=== PATIENT | female | born 1960 | race Caucasian/White ===

== ENCOUNTER 2017-01-05 02:06 | Inpatient (IN) | payer MEDICAID, OTHER ==
[~2017-01-05] VITALS: Ht 160 cm; Wt 110.1 kg
[2017-01-05] VITALS (7 sets, daily range): BP systolic 129–161; BP diastolic 58–95
[2017-01-05] MEDS ORDERED: ASPI81 PO (02:25)
[2017-01-05] MEDS ORDERED: LOSA25TA21 PO (02:25)
[2017-01-05] MEDS ORDERED: METF850T2 PO (02:25)
[2017-01-05 02:33] LABS: GLUCOSE,POINT OF CARE 116 MG/DL (70-110)
[2017-01-05 03:10] LABS: BASOPHILS % (AUTO) 0.8 % (0.0-2.0); EOSINOPHILS % (AUTO) 3.4 % (1.0-6.0); HEMATOCRIT 43.7 % (36-46); HEMOGLOBIN 15.1 g/dL (12.0-16.0); LYMPHOCYTES # (AUTO) 2.8 K/uL (1.0-4.8); LYMPHOCYTES % (AUTO) 26.8 % (22.0-44.0); MEAN CORPUSCULAR HEMOGLOBIN 32.6 pg (26.0-34.0); MEAN CORPUSCULAR HGB CONC 34.5 G/dL (31.0-37.0); MEAN CORPUSCULAR VOLUME 94 fL (80-100); MONOCYTES # (AUTO) 0.7 K/uL (0.1-1.0); MONOCYTES % (AUTO) 6.4 % (2.0-9.0); NEUTROPHILS # (AUTO) 6.6 K/uL (1.8-7.7); NEUTROPHILS % (AUTO) 62.6 % (40.0-70.0); PLATELET COUNT (AUTO) 172 K/uL (150-450); RED BLOOD CELL COUNT(AUTO) 4.63 MIL/uL (4.00-5.20); RED CELL DISTRIBUTION WIDTH 12.6 % (11.5-14.5); WHITE BLOOD COUNT (AUTO) 10.5 K/uL (4.5-11.0)
[2017-01-05 03:16] LABS: INR 1.1 (0.9-1.1); PROTHROMBIN TIME 11.9 SEC (9.4-11.6)
[2017-01-05 03:21] LABS: ANION GAP 7 mmol/L (8-16); CALCIUM, TOTAL 9.2 mg/dL (8.8-10.5); CARBON DIOXIDE 31 mmol/L (22-29); CHLORIDE 103 mmol/L (98-107); CREATININE 1.08 mg/dL (0.60-1.30); GLOMERULAR FILTR. RATE CALC 53 mL/min (>60); POTASSIUM 3.9 mmol/L (3.5-5.1); SODIUM SERUM 141 mmol/L (136-145); UREA NITROGEN, BLOOD 21 mg/dL (7-18)
[2017-01-05 03:38] LABS: B-TYPE NATRIURETIC PEPTIDE 11 pg/mL (0-100)
[2017-01-05 03:47] LABS: ALANINE AMINOTRANSFERASE 96 U/L (12-78); ALBUMIN 3.7 g/dL (3.4-5.0); ASPARTATE AMINOTRANSFERASE 63 U/L (15-37); BILIRUBIN,TOTAL 0.6 mg/dL (0.1-1.0); CREATINE KINASE MB 1.7 ng/mL (0-5); CREATINE KINASE, TOTAL 161 U/L (26-192); TOTAL PROTEIN, SERUM 7.3 g/dL (6.4-8.2)
[2017-01-05] MEDS ORDERED: NITROGLYCERIN 0.4 MG SUBLINGUAL TABLET #25 SL ONE (04:00)
[2017-01-05] MEDS ORDERED: ONDANSETRON HCL 4 MG/2 ML VIAL IVP ONE ×2 (04:00→05:15)
[2017-01-05] MEDS ORDERED: ASPIRIN 325 MG TABLET PO ONE (04:00)
[2017-01-05] MEDS ORDERED: ACETAMINOPHEN 325 MG TABLET PO PRN ×2 (05:15→08:15)
[2017-01-05] MEDS ORDERED: 0.9% SODIUM CHLORIDE 10 ML SYRINGE IVP PRN (05:15)
[2017-01-05] MEDS ORDERED: ONDANSETRON HCL 4 MG/2 ML VIAL IVP PRN (05:15)
[2017-01-05] MEDS ORDERED: MORPHINE SULFATE 2 MG/ML SYRINGE IVP ONE (05:15)
[2017-01-05] MEDS ORDERED: PNEUMOCOCCAL VACCINE POLYVALENT 0.5 ML VIAL [PPSV23] IM ONE (07:30)
[2017-01-05] MEDS ORDERED: MAGNESIUM HYDROXIDE SUSPENSION 30 ML UDCUP PO PRN (08:15)
[2017-01-05] MEDS ORDERED: DEXTROSE 50%-WATER 25 GM/50 ML SYRINGE IVP PRN (08:15)
[2017-01-05] MEDS ORDERED: REGADENOSON 0.4 MG/5 ML PF SYRINGE IVP ONE ×2 (11:18→17:25)
[2017-01-05] MEDS ORDERED: SESTAMIBI TC99M/UD ISOTOPE 1 EA INJ INJ ONE (11:25)
[2017-01-05 13:32] LABS: GLUCOSE,POINT OF CARE 136 MG/DL (70-110)
[2017-01-05] MEDS: PANTOPRAZOLE SODIUM 40 MG DR TABLET PO SCH ×2 (13:54)
[2017-01-05] MEDS: ASPIRIN 81 MG CHEWABLE TABLET PO SCH (13:54)
[2017-01-05] MEDS: DOCUSATE SODIUM 100 MG CAPSULE PO SCH ×2 (13:54→20:12)
[2017-01-05] MEDS: LOSARTAN POTASSIUM 25 MG TABLET PO SCH (13:54)
[2017-01-05] MEDS: AmLODIPine BESYLATE 5 MG TABLET PO SCH (13:54)
[2017-01-05] MEDS: HEPARIN SODIUM,PORCINE 5,000 UNITS/ML VIAL SQ SCH (15:35)
[2017-01-05] MEDS: INSULIN ASPART 100 UNITS/ML SQ PRN (17:56)
[2017-01-06] MEDS: HEPARIN SODIUM,PORCINE 5,000 UNITS/ML VIAL SQ SCH ×3 (00:12→16:49)
[2017-01-06 04:39] VITALS: BP 149/89
[2017-01-06 06:37] LABS: BASOPHILS % (AUTO) 0.7 % (0.0-2.0); EOSINOPHILS % (AUTO) 5.1 % (1.0-6.0); HEMATOCRIT 41.8 % (36-46); HEMOGLOBIN 14.4 g/dL (12.0-16.0); LYMPHOCYTES # (AUTO) 2.1 K/uL (1.0-4.8); LYMPHOCYTES % (AUTO) 32.5 % (22.0-44.0); MEAN CORPUSCULAR HEMOGLOBIN 32.4 pg (26.0-34.0); MEAN CORPUSCULAR HGB CONC 34.4 G/dL (31.0-37.0); MEAN CORPUSCULAR VOLUME 94 fL (80-100); MONOCYTES # (AUTO) 0.4 K/uL (0.1-1.0); MONOCYTES % (AUTO) 6.7 % (2.0-9.0); NEUTROPHILS # (AUTO) 3.5 K/uL (1.8-7.7); PLATELET COUNT (AUTO) 154 K/uL (150-450); RED BLOOD CELL COUNT(AUTO) 4.43 MIL/uL (4.00-5.20); RED CELL DISTRIBUTION WIDTH 12.5 % (11.5-14.5); WHITE BLOOD COUNT (AUTO) 6.4 K/uL (4.5-11.0)
[2017-01-06 07:10] LABS: ALANINE AMINOTRANSFERASE 92 U/L (12-78); ALBUMIN 3.3 g/dL (3.4-5.0); ANION GAP 7 mmol/L (8-16); ASPARTATE AMINOTRANSFERASE 70 U/L (15-37); BILIRUBIN,TOTAL 0.7 mg/dL (0.1-1.0); CALCIUM, TOTAL 8.7 mg/dL (8.8-10.5); CARBON DIOXIDE 30 mmol/L (22-29); CHLORIDE 105 mmol/L (98-107); CREATININE 0.85 mg/dL (0.60-1.30); GLOMERULAR FILTR. RATE CALC > 60 mL/min (>60); POTASSIUM 3.6 mmol/L (3.5-5.1); SODIUM SERUM 142 mmol/L (136-145); TOTAL PROTEIN, SERUM 6.5 g/dL (6.4-8.2); UREA NITROGEN, BLOOD 16 mg/dL (7-18)
[2017-01-06 07:22] LABS: GLUCOSE,POINT OF CARE 143 MG/DL (70-110)
[2017-01-06 07:22] LABS: GLUCOSE,POINT OF CARE 141 MG/DL (70-110)
[2017-01-06 07:22] LABS: GLUCOSE COMMENT 1 Received Meds; GLUCOSE,POINT OF CARE 155 MG/DL (70-110)
[2017-01-06 07:39] VITALS: BP 123/57
[2017-01-06] MEDS ORDERED: SESTAMIBI TC99M/UD ISOTOPE 1 EA INJ INJ ONE (07:50)
[2017-01-06] MEDS: DOCUSATE SODIUM 100 MG CAPSULE PO SCH (09:08)
[2017-01-06] MEDS: ASPIRIN 81 MG CHEWABLE TABLET PO SCH (09:08)
[2017-01-06] MEDS: AmLODIPine BESYLATE 5 MG TABLET PO SCH (09:08)
[2017-01-06] MEDS: PANTOPRAZOLE SODIUM 40 MG DR TABLET PO SCH ×2 (09:08→09:12)
[2017-01-06] MEDS: LOSARTAN POTASSIUM 25 MG TABLET PO SCH (09:08)
[2017-01-06 11:27] VITALS: BP 145/74
[2017-01-06 15:42] VITALS: BP 137/74
[2017-01-06] MEDS: INSULIN ASPART 100 UNITS/ML SQ PRN (17:17)
[2017-01-07 07:09] LABS: HEPATITIS Bs ANTIGEN SCREEN P Negative (Negative); HEPATITIS C AB SCREEN <0.1 s/co ratio (0.0-0.9)
[2017-01-07 12:13] LABS: GLUCOSE,POINT OF CARE 139 MG/DL (70-110)
[2017-01-07 12:13] LABS: GLUCOSE,POINT OF CARE 164 MG/DL (70-110)
== END 2017-01-06 17:55 | disposition home or self-care (01) | DRG 203 ==
LOC: EMS 02:07 → 5N 05:15
PROVIDERS: ADMIT Internal Medicine; ATTEND Internal Medicine
PROC: 3E0234Z Introduction of Serum, Toxoid and Vaccine into Muscle, Percutaneous Approach (ICD-10-PCS; principal; 2017-01-05)
DX: R07.89 Other chest pain (principal); K75.81 Nonalcoholic steatohepatitis (NASH); Z68.41 Body mass index [BMI] 40.0-44.9, adult; I10 Essential (primary) hypertension; R63.4 Abnormal weight loss; R79.89 Other specified abnormal findings of blood chemistry; E78.5 Hyperlipidemia, unspecified; E66.01 Morbid (severe) obesity due to excess calories; E11.9 Type 2 diabetes mellitus without complications; F41.9 Anxiety disorder, unspecified; K21.9 Gastro-esophageal reflux disease without esophagitis; Z79.84 Long term (current) use of oral hypoglycemic drugs; Z82.49 Family history of ischemic heart disease and other diseases of the circulatory system; Z90.49 Acquired absence of other specified parts of digestive tract; Z23 Encounter for immunization
CPT/HCPCS: 78452; 80074; 82962; 83735; 90471; 93005; 93017; 93306; 96374; 96375; 99285; A9500; J1644; J2270; J2405; J2785

== ENCOUNTER 2017-07-11 19:06 | Emergency (ER) | payer OTHER ==
[~2017-07-11] VITALS: Ht 160 cm; Wt 110.2 kg
[~2017-07-11 19:06] MED LIST: ASPI81 PO; LOSA25TA21 PO; METF850T2 PO
[2017-07-11] MEDS ORDERED: [UNRECOGNIZED DRUG - REMARK] PO (19:31)
[2017-07-11] MEDS ORDERED: IBUPROFEN 600 MG TABLET PO ONE (22:30)
[2017-07-11 22:49] VITALS: BP 163/88
[2017-07-12 10:25] LABS: GLUCOSE,POINT OF CARE 144 MG/DL (70-110)
== END 2017-07-11 22:51 | disposition home or self-care (01) ==
LOC: EMS 20:08
DX: J32.9 Chronic sinusitis, unspecified (principal); J02.9 Acute pharyngitis, unspecified; E11.9 Type 2 diabetes mellitus without complications; I10 Essential (primary) hypertension; Z79.82 Long term (current) use of aspirin
CPT/HCPCS: 82962; 87430; 93005; 99285

== ENCOUNTER 2017-12-22 08:05 | Day surgery (SDC) | payer OTHER ==
[~2017-12-22] VITALS: Ht 152.4 cm; Wt 113.6 kg
[~2017-12-22 08:05] MED LIST changes: +AMLO-511 PO; +LOSA1TAB42 PO; -LOSA25TA21 PO; +METF-445 PO; -METF850T2 PO
[2017-12-22] MEDS ORDERED: METOPROLOL TARTRATE 50 MG TABLET PO PRN (08:30)
[2017-12-22] MEDS ORDERED: 0.9% SODIUM CHLORIDE 10 ML SYRINGE IVP PRN (08:30)
[2017-12-22] MEDS ORDERED: METOPROLOL TARTRATE 50 MG TABLET ONE (09:01)
[2017-12-22 10:06] LABS: ANION GAP 8 mmol/L (8-16); CALCIUM, TOTAL 9.1 mg/dL (8.8-10.5); CARBON DIOXIDE 31 mmol/L (22-29); CHLORIDE 104 mmol/L (98-107); CREATININE 0.91 mg/dL (0.60-1.30); GLOMERULAR FILTR. RATE CALC > 60 mL/min (>60); GLUCOSE,RANDOM 140 mg/dL (70-110); POTASSIUM 3.5 mmol/L (3.5-5.1); SODIUM SERUM 143 mmol/L (136-145); UREA NITROGEN, BLOOD 16 mg/dL (7-18)
[2017-12-22] MEDS ORDERED: NITROGLYCERIN 400 MCG/SUBLINGUAL SPRAY 4.9 GM BOTTLE SL ONE (10:15)
[2017-12-22] MEDS ORDERED: METOPROLOL TARTRATE 5 MG/5 ML VIAL ONE (10:15)
[2017-12-22] MEDS ORDERED: IOVERSOL 350 MG/ML 150 ML VIAL ONE (10:18)
[2017-12-22] MEDS ORDERED: SODIUM CHLORIDE 0.9% 100 ML ONE (10:18)
== END 2017-12-22 11:20 | disposition home or self-care (01) ==
LOC: SURGERY 08:05 → EDSTATUS 10:00 → SURGERY 11:20
PROVIDERS: ATTEND Internal Medicine Cardiovascular Disease
DX: I20.8 Other forms of angina pectoris (principal); I70.0 Atherosclerosis of aorta; M47.814 Spondylosis without myelopathy or radiculopathy, thoracic region; F32.9 Major depressive disorder, single episode, unspecified; E11.9 Type 2 diabetes mellitus without complications; K21.9 Gastro-esophageal reflux disease without esophagitis; E78.00 Pure hypercholesterolemia, unspecified; I11.9 Hypertensive heart disease without heart failure; E66.01 Morbid (severe) obesity due to excess calories; M19.90 Unspecified osteoarthritis, unspecified site; Z90.49 Acquired absence of other specified parts of digestive tract; Z82.49 Family history of ischemic heart disease and other diseases of the circulatory system; Z68.42 Body mass index [BMI] 45.0-49.9, adult; Z86.19 Personal history of other infectious and parasitic diseases; Z79.82 Long term (current) use of aspirin; Z79.84 Long term (current) use of oral hypoglycemic drugs; Z79.899 Other long term (current) drug therapy; Z98.890 Other specified postprocedural states
CPT/HCPCS: 36415; 75571; 80048; 93005; J7050; Q9967; J3490

== ENCOUNTER → 2018-04-23 | Emergency (ER) | payer OTHER ==
[~2018-04-23] VITALS: Ht 157.5 cm; Wt 115.9 kg
[~2018-04-23] MED LIST changes: +MORPHINE SULFATE 4 MG/ML SYRINGE IVP ONE; +ONDANSETRON HCL 4 MG/2 ML VIAL IVP ONE
[2018-04-23 01:39] LABS: GLUCOSE,POINT OF CARE 168 MG/DL (70-110)
[2018-04-23 01:48] LABS: BASOPHILS % (AUTO) 0.7 % (0.0-2.0); EOSINOPHILS % (AUTO) 2.2 % (1.0-6.0); HEMATOCRIT 45.8 % (36-46); HEMOGLOBIN 15.7 g/dL (12.0-16.0); LYMPHOCYTES # (AUTO) 2.9 K/uL (1.0-4.8); LYMPHOCYTES % (AUTO) 31.1 % (22.0-44.0); MEAN CORPUSCULAR HEMOGLOBIN 31.5 pg (26.0-34.0); MEAN CORPUSCULAR HGB CONC 34.4 G/dL (31.0-37.0); MEAN CORPUSCULAR VOLUME 92 fL (80-100); MONOCYTES # (AUTO) 0.6 K/uL (0.1-1.0); MONOCYTES % (AUTO) 6.5 % (2.0-9.0); NEUTROPHILS # (AUTO) 5.5 K/uL (1.8-7.7); NEUTROPHILS % (AUTO) 59.5 % (40.0-70.0); PLATELET COUNT (AUTO) 184 K/uL (150-450); RED CELL DISTRIBUTION WIDTH 12.8 % (11.5-14.5)
[2018-04-23 01:56] LABS: ANION GAP 10 mmol/L (8-16); CALCIUM, TOTAL 9.3 mg/dL (8.8-10.5); CARBON DIOXIDE 28 mmol/L (22-29); CHLORIDE 104 mmol/L (98-107); CREATININE 0.84 mg/dL (0.60-1.30); GLOMERULAR FILTR. RATE CALC > 60 mL/min (>60); GLUCOSE,RANDOM 174 mg/dL (70-110); POTASSIUM 3.2 mmol/L (3.5-5.1); SODIUM SERUM 142 mmol/L (136-145); UREA NITROGEN, BLOOD 15 mg/dL (7-18)
[2018-04-23 02:04] LABS: D-DIMER 0.35 mg/L FEU (0.00-0.50); INR 1.2 (0.9-1.1)
[2018-04-23 02:07] LABS: B-TYPE NATRIURETIC PEPTIDE 10 pg/mL (0-100)
[2018-04-23 02:21] LABS: ALANINE AMINOTRANSFERASE 86 U/L (12-78); ALBUMIN 3.7 g/dL (3.4-5.0); ALKALINE PHOSPHATASE 123 U/L (46-116); ASPARTATE AMINOTRANSFERASE 53 U/L (15-37); BILIRUBIN,TOTAL 0.4 mg/dL (0.1-1.0); CREATINE KINASE, TOTAL ONLY 108 U/L (26-192)
[2018-04-23 05:35] VITALS: BP 126/84
== END | disposition home or self-care (01) ==
LOC: EMS 00:55
DX: K29.70 Gastritis, unspecified, without bleeding (principal); R07.2 Precordial pain; E11.9 Type 2 diabetes mellitus without complications; I10 Essential (primary) hypertension; F41.9 Anxiety disorder, unspecified; Z79.82 Long term (current) use of aspirin; Z79.84 Long term (current) use of oral hypoglycemic drugs
CPT/HCPCS: 36415; 71045; 76700; 80053; 82550; 82962; 83880; 84484; 85025; 85379; 85610; 85730; 93005; 96374; 96375; 99285; J2270; J2405